=== PATIENT | female | born 1970 | race Caucasian/White ===

== ENCOUNTER 2017-03-06 13:34 | Emergency (ER) | payer SELFPAY ==
[2017-03-06 14:18] VITALS: TEMP 98; O2SAT 96
--- NOTE | 2017-03-06 14:26 | ED.PDOC ---
History of Present Illness - General Chief Complaint: Back Pain or Injury Stated Complaint: back pain Time Seen by Provider: 03/06/17 14:06 Source: patient Exam Limitations: no limitations - History of Present Illness Initial Comments: Ms. Blanche Singh 46 y/o female with history of chronic low back pain s/p back surgery 22y/ago due to herniated disc and recently starting to have sharp burning pain mostly on the back and radiating to her left LLE back of her knee.Denies bowel or bladder dysfunction,no foot dragging,no weakness stated sometimes it hits her hard had been up on her feet all day at work.Had low back surgery when she was 24 y/o stating that on waking up could not get up brought to [facility] at that time and had the procedure done on her back. Timing/Duration: 1-3 hours Quality/Severity: burning, sharpness Back Pain Location: lumbar spine Back Pain Radiation: lower legs Method of Injury/Prior Injury: unknown Improving Factors: rest Worsening Factors: movement Associated Symptoms: muscle spasms, lower back pain Home Medications: Ambulatory Orders Acetamin W/Cod #3 Tab [Tylenol w/CODEINE #3] 1 ea PO Q6HRS #14 tab 03/06/17 Naproxen [Naprosyn] 500 mg PO BID #14 tab 03/06/17 predniSONE [Prednisone] 20 mg PO BID #30 tab 03/06/17 tiZANidine [Zanaflex] 4 mg PO TID #14 tab 03/06/17 Review of Systems - Review of Systems Constitutional: States: no symptoms reported EENTM: States: no symptoms reported Respiratory: States: no symptoms reported Cardiology: States: no symptoms reported Gastrointestinal/Abdominal: States: no symptoms reported Genitourinary: States: no symptoms reported Skin: States: no symptoms reported Neurological: States: no symptoms reported Endocrine: States: no symptoms reported Hematologic/Lymphatic: States: no symptoms reported Past Medical History (General) - Patient Medical History Hx Seizures: Yes - febrile sz in childhood -resolved Hx Cardiac Disorders: Yes - atrial fibrillation Hx Other PMH: Yes - chronic lbp Surgical History: cholecystectomy, tonsillectomy, other Other Surgeries:: btl,hysterectomy,low back ,urinary bladder /rectal tuck, cyst r foot - Social History Hx Tobacco Use: No Hx Chewing Tobacco Use: No Hx Alcohol Use: No Hx Substance Use: No - Activities of Daily Living Patient Lives Alone: No - Grooming Ability: Independent Eating (Feeding) Ability: Independent Toileting Ability: Independent Family Medical History - Family History Mother Family History: Unknown Hx Family Hypertension: Yes - parents Hx Cardiac Disease: Yes Hx Family Diabetes: Yes - dad Physical Exam - Physical Exam General Appearance: Alert, No apparent distress, Other - in pain Eyes, Ears, Nose, Throat Exam: PERRL/EOMI, normal ENT inspection, TMs normal Neck Exam: non-tender, full range of motion, normal alignment, normal inspection Cardiovascular/Respiratory: regular rate, rhythm, no M/R/G, normal peripheral pulses, no JVD, normal breath sounds, no respiratory distress Peripheral Pulses: radial,right: 2+, radial,left: 2+ Gastrointestinal/Abdominal: normal bowel sounds, soft, no organomegaly, no pulsatile mass Back Exam: normal inspection, no CVA tenderness, no vertebral tenderness, CVA tenderness (L), muscle spasm Extremity Exam: normal range of motion, non-tender Neurologic: no motor/sensory deficits, alert, oriented x 3, other - DTR 1+ left no dtr right-knee jerk; slr +30 degrees left lle Departure - Departure Clinical Impression: Degeneration of lumbar intervertebral disc, Radiculopathy of lumbar region Time of Disposition: 14:37 Disposition: Discharge to Home or Self Care Condition: Fair Departure Forms: ED Discharge - Pt. Copy, Patient Portal Self Enrollment Instructions: DI for Low Back Pain, DI for Back Pain With Sciatica Prescriptions: Acetamin W/Cod #3 Tab [Tylenol w/CODEINE #3] 1 ea PO Q6HRS #14 tab Naproxen [Naprosyn] 500 mg PO BID #14 tab predniSONE [Prednisone] 20 mg PO BID #30 tab tiZANidine [Zanaflex] 4 mg PO TID #14 tab Home Medications: Ambulatory Orders Acetamin W/Cod #3 Tab [Tylenol w/CODEINE #3] 1 ea PO Q6HRS #14 tab 03/06/17 Naproxen [Naprosyn] 500 mg PO BID #14 tab 03/06/17 predniSONE [Prednisone] 20 mg PO BID #30 tab 03/06/17 tiZANidine [Zanaflex] 4 mg PO TID #14 tab 03/06/17 Additional Instructions: NEED TO MAKE APPOINTMENT WITH PRIMARY MD PATIENT TO NEXT WEEK.
[2017-03-06] MEDS ORDERED: ORPHENADRINE CITRATE 30 MG/ML AMP IM ONE (14:35)
[2017-03-06] MEDS ORDERED: predniSONE 20 MG TAB PO ONE (14:35)
[2017-03-06] MEDS ORDERED: KETOROLAC TROMETHAMINE INJ 30 MG/ML VIAL IM ONE (14:35)
[2017-03-06] MEDS ORDERED: HYDROcodone 10MG/APAP 325MG 1 EA TAB PO ONE (14:36)
[2017-03-06 15:47] VITALS: BP 130/88
== END 2017-03-06 15:15 | disposition home or self-care (01) ==
LOC: ER 13:34
DX: M51.16 Intervertebral disc disorders with radiculopathy, lumbar region (principal); I48.91 Unspecified atrial fibrillation
CPT/HCPCS: J1885; J2360; J7512

== ENCOUNTER 2017-06-01 11:10 | Emergency (ER) | payer SELFPAY ==
--- NOTE | 2017-06-01 12:18 | ED.PDOC ---
History of Present Illness - General Chief Complaint: General Stated Complaint: headache, pain to right arm and hip Time Seen by Provider: 06/01/17 11:32 Source: patient Exam Limitations: no limitations - History of Present Illness Initial Comments: Patient complains of a headache for four days. Is generalized, constant, and throbbing. She denies ever having a similar headache. She also complains of right arm pain and right hip pain. No hx of falls. She denies paresthesias. She says she has intermittent atrial fibrillation that resolves with deep breathing. She denies ever having had a stroke. Also complains of bilateral jaw pain. No vision nor hearing changes. No other complaints. Timing/Duration: other - 4 days Severity: moderate Improving Factors: nothing Worsening Factors: nothing Associated Symptoms: other - see HPI Allergies/Adverse Reactions: Allergies NO KNOWN ALLERGY Allergy (Verified 03/06/17 15:29) Home Medications: Ambulatory Orders Acetamin W/Cod #3 Tab [Tylenol w/CODEINE #3] 1 ea PO Q6HRS #14 tab 03/06/17 Naproxen [Naprosyn] 500 mg PO BID #14 tab 03/06/17 predniSONE [Prednisone] 20 mg PO BID #30 tab 03/06/17 tiZANidine [Zanaflex] 4 mg PO TID #14 tab 03/06/17 Review of Systems - Review of Systems Constitutional: States: no symptoms reported EENTM: States: see HPI Respiratory: States: no symptoms reported Cardiology: States: no symptoms reported Gastrointestinal/Abdominal: States: no symptoms reported Genitourinary: States: no symptoms reported Musculoskeletal: States: see HPI Skin: States: no symptoms reported Neurological: States: see HPI Endocrine: States: no symptoms reported Hematologic/Lymphatic: States: no symptoms reported Past Medical History (General) - Patient Medical History Hx Seizures: Yes - febrile sz in childhood -resolved Hx Cardiac Disorders: Yes - atrial fibrillation Surgical History: cholecystectomy, tonsillectomy, Hysterectomy, other - Social History Hx Tobacco Use: No Hx Chewing Tobacco Use: No Hx Alcohol Use: No Hx Substance Use: No Family Medical History - Family History Mother Family History: Unknown Hx Family Hypertension: Yes - parents Hx Cardiac Disease: Yes Hx Family Diabetes: Yes - dad Physical Exam - Physical Exam General Appearance: Alert Eye Exam: bilateral normal Ears, Nose, Throat: normal ENT inspection Neck: non-tender, full range of motion, supple Respiratory: lungs clear Cardiovascular/Chest: normal peripheral pulses, regular rate, rhythm Gastrointestinal/Abdominal: normal bowel sounds, non tender, soft Back Exam: no CVA tenderness Extremity: normal range of motion, non-tender, normal inspection Neurologic: system admin II-XII nml as tested, no motor/sensory deficits, alert, normal mood/affect, oriented x 3 Skin Exam: normal color Progress - Progress Progress: 06/01/17 14:34 Patient's headache resolved with toradol. CT head negative. ESR negative. Departure - Departure Clinical Impression: Headache Disposition: Discharge to Home or Self Care Condition: Good Departure Forms: ED Discharge - Pt. Copy, Patient Portal Self Enrollment Diet: resume usual diet Activity: increase activity as tolerated Home Medications: Ambulatory Orders Acetamin W/Cod #3 Tab [Tylenol w/CODEINE #3] 1 ea PO Q6HRS #14 tab 03/06/17 Naproxen [Naprosyn] 500 mg PO BID #14 tab 03/06/17 predniSONE [Prednisone] 20 mg PO BID #30 tab 03/06/17 tiZANidine [Zanaflex] 4 mg PO TID #14 tab 03/06/17 Additional Instructions: Follow up with your regular physician.
--- NOTE | 2017-06-01 12:42 | RAD ---
EXAM DESCRIPTION: Chest,1 View CLINICAL HISTORY: right arm pain COMPARISON: None. IMPRESSION: Single AP portable upright view of the chest shows cardiac silhouette and pulmonary vasculature to be within normal limits. Lungs are normally aerated and clear. No obvious pleural effusion or pneumothorax is seen. Electronically signed by: Real Moore MD 06/01/2017 12:41 PM CDT
--- NOTE | 2017-06-01 13:15 | CT ---
EXAM DESCRIPTION: Head CLINICAL HISTORY: headache for 4 days, hx of atrial fibrillation COMPARISON: None TECHNIQUE: Noncontrast transaxial CT images of the head are obtained from base to vertex. This exam was performed according to our departmental dose-optimization program, which includes automated exposure control, adjustment of the mA and/or kV according to patient size and/or use of iterative reconstruction technique. FINDINGS: The midline structures are not displaced. The sulci are age appropriate. The lateral, third, and fourth ventricles are normal in size, shape, and anatomic positioning. There is no evidence of mass, mass effect, hydrocephalus, or acute intracranial hemorrhage. No abnormal extra axial fluid collections are seen. Normal everett-white differentiation is seen. The visualized bone windows show no depressed skull fracture or significant abnormality. The visualized paranasal sinuses and mastoid air cells are clear. IMPRESSION: 1. No acute abnormality is seen on noncontrast CT of the head. Electronically signed by: Real Moore MD 06/01/2017 1:13 PM CDT
[2017-06-01] MEDS ORDERED: KETOROLAC TROMETHAMINE INJ 30 MG/ML VIAL IM ONE (13:45)
[2017-06-01 14:53] VITALS: BP 136/79; O2SAT 96
[2017-06-01 18:32] VITALS: TEMP 98.7
== END 2017-06-01 14:45 | disposition home or self-care (01) ==
LOC: ER 11:10
DX: R51 Headache (principal); I48.91 Unspecified atrial fibrillation; Z82.49 Family history of ischemic heart disease and other diseases of the circulatory system; Z79.899 Other long term (current) drug therapy
CPT/HCPCS: 36415; 70450; 71010; 80053; 82550; 82553; 83880; 84484; 85025; 85610; 85651; 85730; 93005; J1885